=== PATIENT | female | born 1980 | race Caucasian/White ===

== ENCOUNTER 2020-10-31 15:21 | Emergency (ER) | payer OTHER ==
[~2020-10-31] VITALS: Ht 154.9 cm; Wt 72.6 kg
[2020-10-31 16:10] LABS: BASOPHILS ABSOLUTE AUTO 0.12 K/mm3 (0.00-0.23); BASOPHILS PERCENT AUTO 1 % (0-2); EOSINOPHILS ABSOLUTE AUTO 0.58 K/mm3 (0.00-0.68); EOSINOPHILS PERCENT AUTO 4 % (0-6); Hematocrit 42.5 % (33.0-51.0); Hemoglobin 13.4 g/dL (11.5-16.0); IMMATURE GRAN ABSOLUTE AUTO 0.04 K/mm3 (0.00-0.10); IMMATURE GRAN PERCENT AUTO 0 % (0-1); LYMPHOCYTES ABSOLUTE AUTO 2.95 K/mm3 (0.84-5.20); LYMPHOCYTES PERCENT AUTO 22 % (21-46); MONOCYTES ABSOLUTE AUTO 0.78 K/mm3 (0.16-1.47); MONOCYTES PERCENT AUTO 6 % (4-13); Mean Corpuscular HGB 29.3 pg (26.0-34.0); Mean Corpuscular HGB Conc 31.5 g/dL (31.5-36.5); Mean Corpuscular Volume 93 fL (80-100); Mean Platelet Volume 9.6 fL (9.1-12.4); NEUTROPHILS ABSOLUTE AUTO 8.94 K/mm3 (1.96-9.15); NEUTROPHILS PERCENT AUTO 67 % (41-73); Platelet Count 342 K/mm3 (150-400); RDW Coefficient Variation 14.7 % (11.7-14.2); RDW Standard Deviation 51.3 fL (35.1-46.3); Red Blood Cell Count 4.57 M/mm3 (3.80-5.20); White Blood Cell Count 13.41 K/mm3 (4.00-11.30)
[2020-10-31] MEDS ORDERED: CITA20 PO (16:26)
[2020-10-31] MEDS ORDERED: CLON1 PO (16:26)
[2020-10-31] MEDS ORDERED: OMEP20ER PO (16:27)
[2020-10-31 16:32] LABS: Alanine Aminotransfer (ALT/SGP 34 U/L (12-78); Alk Phos 93 U/L (50-136); Anion Gap 9 mmol/L (6-16); Aspartate Aminotrans (AST/SGOT 25 U/L (12-37); Bilirubin, Total 0.3 mg/dL (0.1-1.0); Blood Urea Nitrogen 15 mg/dL (8-24); CO2, Blood 22 mmol/L (21-32); Calcium, Blood 8.8 mg/dL (8.5-10.1); Chloride, Blood 105 mmol/L (98-108); Creatinine, Blood 0.83 mg/dL (0.40-1.00); Glomerular Filtration Rate >60 (60-); Glucose, Blood 93 mg/dL (70-99); Potassium, Blood 3.9 mmol/L (3.5-5.5); Sodium, Blood 136 mmol/L (136-145)
[2020-10-31 16:57] LABS: Source, Urine Voided
[2020-10-31 17:05] LABS: Appearance, Urine Clear (Clear); Bilirubin, Urine Neg (Neg); Blood, Urine 1+ (Neg); Color, Urine Yellow (P-Yellow); Glucose Qualitative, Urine Neg (Neg); Ketones, Urine Neg (Neg); Leukocyte Esterase, Urine Neg (Neg); Nitrite, Urine Neg (Neg); Protein, Urine Neg (Neg); Urobilinogen, Urine NORM (Normal)
[2020-10-31 17:28] LABS: White Blood Cells, Urine Rare /hpf (0-5)
[2020-10-31 17:29] LABS: Bacteria Rare /hpf; Red Blood Cells, Urine 0-2 /hpf (0-2); Squamous Epithelial Cells Rare /hpf (Few)
[2020-10-31] MEDS ORDERED: METPRE4DP PO (17:38)
[2020-10-31] MEDS ORDERED: TRAM50 PO (17:38)
== END 2020-10-31 18:12 | disposition home or self-care (01) ==
LOC: ER 15:21
PROVIDERS: Emergency Medicine; Physician Assistant
DX: M54.16 Radiculopathy, lumbar region (principal); F17.210 Nicotine dependence, cigarettes, uncomplicated; Z79.899 Other long term (current) drug therapy
CPT/HCPCS: 36415; 71046; 80053; 81001; 85025; 85379; 96374; 99283-25; J1885

== ENCOUNTER → 2020-10-31 | Outpatient (CLI) | payer OTHER ==
[~2020-10-31] MED LIST: CITA20 PO; CLON1 PO; METPRE4DP PO; OMEP20ER PO; TRAM50 PO; VENL37.5 PO
== END | disposition home or self-care (01) ==
LOC: PLD 12:21 → LAB SHORT 12:21
DX: C43.71 Malignant melanoma of right lower limb, including hip (principal)
CPT/HCPCS: 88305

== ENCOUNTER 2020-11-20 06:18 | Day surgery (SDC) | payer OTHER ==
[~2020-11-20] VITALS: Ht 154.9 cm; Wt 75.0 kg
[~2020-11-20 06:18] MED LIST changes: -VENL37.5 PO
[2020-11-20] MEDS ORDERED: VENL37.5 PO (06:33)
--- NOTE | 2020-11-20 06:59 | NUR ---
History, Chart, Medications and Allergies reviewed before start of procedure. Lungs clear T/O to Auscultation. Patient confirms NPO status and agrees with scheduled surgery. Patient States Post-Procedure ride home has been arranged.
[2020-11-20 07:35] LABS: Influenza A, PCR Negative (NEGATIVE); Influenza B, PCR Negative (NEGATIVE); Resp Syncytial Virus, PCR Negative (NEGATIVE); SARS-Cov-2 (COVID-19) PCR, MMC Negative (NEGATIVE)
--- NOTE | 2020-11-20 07:59 | NUR ---
11/20/20 0759 Lesvia Feliciano NO ANTIBIOTICS ORDERED
--- NOTE | 2020-11-20 09:17 | NUR ---
Patient up to Ambulate independently. Gait steady. Discharge instructions reviewed with patient. Patient verbalizes understanding. Copy given to patient to take home. Discharged via wheelchair to private car for ride home WITH [employer]END
== END 2020-11-20 09:21 | disposition home or self-care (01) ==
LOC: ORSCMMR 06:18 → ORD 07:30 → ORSCMMR 07:30 → ORD 09:30
PROVIDERS: Obstetrics & Gynecology
PROC: 0UPD7HZ Removal of Contraceptive Device from Uterus and Cervix, Via Natural or Artificial Opening (ICD-10-PCS; principal; 2020-11-20 07:30)
PROC: 0UH98HZ Insertion of Contraceptive Device into Uterus, Via Natural or Artificial Opening Endoscopic (ICD-10-PCS; principal; 2020-11-20 07:30)
DX: T83.32XA Displacement of intrauterine contraceptive device, initial encounter (principal); F17.210 Nicotine dependence, cigarettes, uncomplicated; K21.9 Gastro-esophageal reflux disease without esophagitis; Z79.899 Other long term (current) drug therapy
CPT/HCPCS: 0241U; A9270; J1100; J2250; J2405; J2704; J3010; J7120; J7298

== ENCOUNTER 2021-06-23 09:41 | Emergency (ER) | payer BC ==
[~2021-06-23] VITALS: Ht 154.9 cm; Wt 81.7 kg
[~2021-06-23 09:41] MED LIST changes: +VENL37.5 PO
[2021-06-23 10:32] LABS: BASOPHILS ABSOLUTE AUTO 0.07 K/mm3 (0.00-0.23); BASOPHILS PERCENT AUTO 1 % (0-2); EOSINOPHILS ABSOLUTE AUTO 0.41 K/mm3 (0.00-0.68); EOSINOPHILS PERCENT AUTO 5 % (0-6); Hematocrit 41.2 % (33.0-51.0); Hemoglobin 13.2 g/dL (11.5-16.0); IMMATURE GRAN ABSOLUTE AUTO 0.02 K/mm3 (0.00-0.10); IMMATURE GRAN PERCENT AUTO 0 % (0-1); LYMPHOCYTES ABSOLUTE AUTO 2.32 K/mm3 (0.84-5.20); LYMPHOCYTES PERCENT AUTO 27 % (21-46); MONOCYTES ABSOLUTE AUTO 0.51 K/mm3 (0.16-1.47); MONOCYTES PERCENT AUTO 6 % (4-13); Mean Corpuscular HGB 29.1 pg (26.0-34.0); Mean Corpuscular Volume 91 fL (80-100); Mean Platelet Volume 9.8 fL (9.1-12.4); NEUTROPHILS ABSOLUTE AUTO 5.19 K/mm3 (1.96-9.15); NEUTROPHILS PERCENT AUTO 61 % (41-73); Platelet Count 335 K/mm3 (150-400); RDW Coefficient Variation 14.6 % (11.7-14.2); RDW Standard Deviation 48.8 fL (35.1-46.3); Red Blood Cell Count 4.53 M/mm3 (3.80-5.20); White Blood Cell Count 8.52 K/mm3 (4.00-11.30)
[2021-06-23 11:00] LABS: Alanine Aminotransfer (ALT/SGP 43 U/L (12-78); Albumin, Blood 3.5 g/dL (3.4-5.0); Albumin/Globulin Ratio 0.9 (0.8-1.8); Alk Phos 84 U/L (50-136); Anion Gap 8 mmol/L (6-16); Aspartate Aminotrans (AST/SGOT 20 U/L (12-37); Bilirubin, Total 0.5 mg/dL (0.1-1.0); Blood Urea Nitrogen 11 mg/dL (8-24); Bun/Creatinine Ratio 13.7 (12.0-20.0); CO2, Blood 23 mmol/L (21-32); Calcium, Blood 8.6 mg/dL (8.5-10.1); Chloride, Blood 105 mmol/L (98-108); Creatinine, Blood 0.81 mg/dL (0.40-1.00); Globulin, Blood 4.1 g/dL (2.2-4.0); Glomerular Filtration Rate >60 (60-); Glucose, Blood 106 mg/dL (70-99); Potassium, Blood 3.4 mmol/L (3.5-5.5); Sodium, Blood 136 mmol/L (136-145); Total Protein, Blood 7.6 g/dL (6.4-8.2); Troponin I <0.015 ng/mL (0.000-0.040)
[2021-06-23 12:35] LABS: SARS-Cov-2 (COVID-19) PCR, MMC NEGATIVE (NEGATIVE)
[2021-06-23] MEDS ORDERED: ONDA4 PO (13:46)
== END 2021-06-23 14:05 | disposition home or self-care (01) ==
LOC: ER 09:41
PROVIDERS: Emergency Medicine Emergency Medical Services
DX: R07.9 Chest pain, unspecified (principal); Z20.822 Contact with and (suspected) exposure to COVID-19
CPT/HCPCS: 36415; 71045; 76705; 80053; 83690; 84484; 85025; 85379; 93005; 93010; 99284-25; A9270; J7030; U0004